=== PATIENT | female | born 1960 | race Caucasian/White ===

== ENCOUNTER 2018-03-11 10:03 | Day surgery (SDC) | payer OTHER ==
[2018-03-11] MEDS ORDERED: FENTAnyl 50 MCG/ML VIAL (12:14)
[2018-03-11] MEDS ORDERED: MIDAZOLAM 1 MG/ML 2 ML INJ ×2 (12:14)
== END 2018-03-11 14:28 | disposition home or self-care (01) ==
LOC: GIL 10:03
DX: Z12.11 Encounter for screening for malignant neoplasm of colon (principal); K64.8 Other hemorrhoids; I10 Essential (primary) hypertension
CPT/HCPCS: 45378